=== PATIENT | female | born 1975 ===

== ENCOUNTER → 2018-02-16 | Emergency (ER) | payer BC ==
[~2018-02-16] VITALS: Ht 162.6 cm; Wt 106.6 kg
== END | disposition home or self-care (01) ==
LOC: ER 11:17
DX: L02.412 Cutaneous abscess of left axilla (principal)

== ENCOUNTER 2018-08-16 11:44 | Outpatient (CLI) | payer OTHER | END 2018-08-16 11:46 | disposition home or self-care (01) | LOC: MAMO-SONO 11:44 | DX: N64.4 Mastodynia (principal); N63.10 Unspecified lump in the right breast, unspecified quadrant; N63.20 Unspecified lump in the left breast, unspecified quadrant; Z12.31 Encounter for screening mammogram for malignant neoplasm of breast ==

== ENCOUNTER 2020-04-12 06:04 | Day surgery (SDC) | payer OTHER, BC | END 2020-04-12 10:30 | disposition home or self-care (01) | LOC: AMB-ENDOS 06:04 | PROVIDERS: ATTEND Surgery | DX: K29.50 Unspecified chronic gastritis without bleeding (principal); K44.9 Diaphragmatic hernia without obstruction or gangrene; Z20.828 Contact with and (suspected) exposure to other viral communicable diseases ==